=== PATIENT | male | born 1945 | race Hispanic/Latino ===

== ENCOUNTER 2023-12-24 06:21 | Day surgery (SDC) | payer OTHER ==
[2023-12-24] VITALS (12 sets, daily range): BP systolic 92–134; BP diastolic 53–75; PULSE 59–66; RESP 15–18
[~2023-12-24] VITALS: Ht 162.6 cm; Wt 101.6 kg
[~2023-12-24 06:21] MED LIST: ALBU18HF7 IH; ATOR10 PO; CARV6.25 PO; DUTA0.5C37 PO; FISH1CAP27 PO; FLUT1BLS3 IH; FURO20TA4 PO; GLIP5TAB15 PO; LACT10SO76 PO; LISI30TA4 PO; MULT-1203 PO; RIVA20TA PO; SACU1TAB PO; SITA100T12 PO; SOLI10TA7 PO; TAMS-1 PO
[2023-12-24] MEDS: 0.9%NACL 1000ML 1,000 ML IV ONE (08:02)
[2023-12-24] MEDS ORDERED: PROPOFOL 10 MG/ML 20ML VIAL IV ONE (09:04)
[2023-12-24] MEDS ORDERED: NIFE-40 PO (10:02)
== END 2023-12-24 10:30 | disposition home or self-care (01) ==
LOC: DAH 06:21 → ENDO 06:21
PROVIDERS: ATTEND Internal Medicine Gastroenterology
DX: K74.69 Other cirrhosis of liver (principal); K76.6 Portal hypertension; K31.A0 Gastric intestinal metaplasia, unspecified; K29.50 Unspecified chronic gastritis without bleeding; K59.00 Constipation, unspecified; I10 Essential (primary) hypertension; I25.10 Atherosclerotic heart disease of native coronary artery without angina pectoris; E78.5 Hyperlipidemia, unspecified; E11.9 Type 2 diabetes mellitus without complications; J43.9 Emphysema, unspecified; I25.2 Old myocardial infarction; Z87.891 Personal history of nicotine dependence; Z98.41 Cataract extraction status, right eye; Z86.010 Personal history of colon polyps; Z79.899 Other long term (current) drug therapy
CPT/HCPCS: 82948 ×2; 43239; J7030 ×2; J2704; A4620; A4215; A4223; A7002; A4222; A4221; A4663; A4606; J3490